=== PATIENT | female | born 1990 | race Asian ===

== ENCOUNTER 2020-06-17 15:43 | Emergency (ER) | payer OTHER, SELFPAY ==
[2020-06-17 15:45] VITALS: BP 152/67; PULSE 114; RESP 15; TEMP 36.3; O2SAT 100; BMI 27.4
--- NOTE | 2020-06-17 15:55 | DI.US.S_ITS ---
PROCEDURE: US OB LIMITED INDICATIONS: 13 weeks ,bleeding and crampng OUTSIDE/PRIOR DATING DATA: Last menstrual period (LMP): Unknown . LMP-based estimated date of delivery (SONAL): Unknown First dating scan (date and location): Unknown Estimated date of delivery (SONAL) from first dating scan: 12/28/2020 TECHNIQUE: Real-time scanning was performed of the fetus, with image documentation. COMPARISON: None. FINDINGS: Single live intrauterine is identified with heart rate of 170 beats per minute. The placenta is anterior. There is no gross previa or abruption identified. However, it is noted images are suboptimal and and felt to be suboptimally evaluated. It is noted that amniotic fluid is present. Measurements were not obtained. There is a heterogeneous focus of echogenicity within the lower uterine segment measuring approximately 6.1 x 6.3 x 5.4 cm. A 2nd focus is noted in the fundal region measuring approximately 5.9 x 6.0 x 6.6 cm. Adnexal structures are not identified. . IMPRESSION: 1. Suboptimal evaluation as described below. Recommend correlation of beta hCG levels and interval ultrasound follow-up in 1-2 days for further evaluation if symptoms persist. 2. Focus of heterogeneous echogenicity within the lower uterine segment. While this could represent a fibroid, it is felt to be poorly characterized. Etiology such as clot cannot be excluded. 3. Heterogeneous echogenicity within the fundus appearing more suggestive of fibroid. 4. No gross placental abnormality. However, it is poorly visualized. Dictated by: Belkis Lentz M.D. on 06/17/2020 at 16:47 Approved by: Belkis Lentz M.D. on 06/17/2020 at 16:56
--- NOTE | 2020-06-17 17:48 | PC.NURSE ---
Per Dr. Young, will await blood draw until she has seen results from Ultrasound.
--- NOTE | 2020-06-17 17:50 | ED.PREGNANCY ---
HPI - General Chief complaint: Vaginal Bleeding Stated complaint: 13 weeks - bleeding Time Seen by Provider: 06/17/20 16:04 Source: patient Mode of arrival: Ambulatory Limitations: no limitations History of Present Illness HPI Narrative: 29-year-old at 13 weeks gestational age, B-positive blood type presents with red vaginal bleeding. They are up visiting from [place] have been doing some driving as well as gentle strolling today. She notes that she had some abdominal pelvic cramping consistent with prior menstrual cramps last night, enough that she was having difficulty sleeping. By 4:00 a.m. this afternoon she noticed red blood enough that it coded the lining of her underwear has not continued since then. She does continue to have a cramping. She notes that she has to known fibroids in her uterus and has always had severe menstrual cramps with prior menses. She has a scheduled follow-up appointment with her OB provider tomorrow already. With the bright red bleeding noticed today they stopped by the emergency room for guidance and reassurance Patient : Yes Related Data Allergies Allergy/AdvReac Type Severity Reaction Status Date / Time No Known Drug Allergies Allergy Verified 06/17/20 15:52 Review of Systems Review of Systems Narrative: Minor amount of constipation with slight increased in abdominal gas Pertinent positive and negative findings as per HPI Remainder of review of systems is otherwise unremarkable for Constitutional: Fevers, chills, weakness ENT: No sore throat, neck pain, ear pain CV: Chest pain, palpitations, dyspnea on exertion Respiratory: Cough, wheeze, dyspnea GI: Nausea, vomiting, : Dysuria, hematuria, flank pain PMFSH - Past Medical History Surgical history: Reports no surgical history CODING ASSISTANT history: Reports Uterine Fibroids Patient : Yes Exam Narrative Exam Narrative: General: Alert appropriate in no acute distress Respiratory: Able to speak in full sentences, no obvious respiratory distress Skin: No obvious rashes, warm and dry Abdomen: Nontender, no palpable contractions, Neurologic: Grossly intact no obvious asymmetries or abnormalities Psych: appropriate insight and affect, cooperative External genitalia: Minor amount of brown discharge from the vagina Initial Vital Signs Initial Vital Signs: Vital Signs Temperature 97.3 F L 06/17/20 15:45 Pulse Rate 114 H 06/17/20 15:45 Respiratory Rate 15 06/17/20 15:45 Blood Pressure 152/67 H 06/17/20 15:45 Pulse Oximetry 100 06/17/20 15:45 Course Orders Ordered: ED Orders 06/17/20 15:55 US OB limited Stat ABO RH Type Stat Complete Blood Count AUTO DIFF Stat Comprehensive Metabolic Panel Stat HCG Quantitative /Beta subunit Stat Discontinued Medications Acetaminophen (Acetaminophen 325 Mg Tablet) 975 mg PO NOW ONE Stop: 06/17/20 18:30 Vital Signs Vital signs: Vital Signs - 8 hr 06/17/20 15:45 Temperature 97.3 F L Pulse Rate 114 H Respiratory Rate 15 Blood Pressure 152/67 H Pulse Oximetry 100 MDM - OB/Uterine Contractions Medical Records Attestation: I reviewed the patient's medical records. Lab Data Attestation: I reviewed the patient's lab results. Labs: Urine Dip Bedside Urine Glucose Negative Bedside Urine Bilirubin - Negative Bedside Urine Ketone - Negative Urine Specific [place] 1.010 Bedside Urine Occult Blood +++ Bedside Urine pH 6.0 Bedside Urine Protein - Negative Bedside Urine Urobilinogen - Negative Bedside Urine Nitrite - Negative Bedside Urine Leukocytes - Negative Esterase Imaging Data US ob: Radiologist's Impression: FINDINGS: Single live intrauterine is identified with heart rate of 170 beats per minute. The placenta is anterior. There is no gross previa or abruption identified. However, it is noted images are suboptimal and and felt to be suboptimally evaluated. It is noted that amniotic fluid is present. Measurements were not obtained. There is a heterogeneous focus of echogenicity within the lower uterine segment measuring approximately 6.1 x 6.3 x 5.4 cm. A 2nd focus is noted in the fundal region measuring approximately 5.9 x 6.0 x 6.6 cm. Adnexal structures are not identified. . IMPRESSION: 1. Suboptimal evaluation as described below. Recommend correlation of beta hCG levels and interval ultrasound follow-up in 1-2 days for further evaluation if symptoms persist. 2. Focus of heterogeneous echogenicity within the lower uterine segment. While this could represent a fibroid, it is felt to be poorly characterized. Etiology such as clot cannot be excluded. 3. Heterogeneous echogenicity within the fundus appearing more suggestive of fibroid. 4. No gross placental abnormality. However, it is poorly visualized. Dictated by: Belkis Lentz M.D. on 06/17/2020 at 16:47 MDM Narrative Medical decision making narrative: 29-year-old with 2 known uterine fibroids 1 at the fundus and 1 near the lower uterine segment. Minor amount of vaginal bleeding today with some cramping that is consistent with her usual menstrual cramping. She is B-positive so RhoGAM is not required. Bleeding has stopped at this point. She has a routine follow-up scheduled for tomorrow with her OBGYN. She is given a copy of the OB ultrasound done in the emergency department today. Advised her that Tylenol was safe and acceptable help with the cramping that she is currently having. At this point she is safe for home discharge Discharge Plan Departure Patient Disposition: Home Clinical Impression: Threatened Instructions: DI for Vaginal Bleeding During Activity Restrictions/Additional Instructions: Thank you for coming in today Your baby is alive and well with a heartbeat at 147 You do have the 2 fibroids in your uterus as you are aware. I suspect that part of the bleeding that your having is some bleeding just under the placenta related to the lower fibroid. I have given you a copy of the ultrasound report that was done in the emergency room, please share this with your OB doctor at your appointment tomorrow For the cramping, it is safe to use Tylenol. I would recommend decrease activity and pelvic rest (nothing in your vagina and no orgasms) If you have a change to the type of pain that you are experiencing or a dramatic amount of bright red bleeding it would be very appropriate to return to the closest emergency department I hope the rest of this goes well for you.
--- NOTE | 2020-06-17 18:32 | PC.NURSE ---
NO labs or IV needed at this time. Patient to be DC'd.
[2020-06-17] MEDS: ACETAMINOPHEN 325 MG TABLET 975 MG PO (18:43)
[2020-06-17 18:44] VITALS: BP 128/79; PULSE 87; RESP 17; O2SAT 99
== END 2020-06-17 18:45 | disposition home or self-care (01) ==
PROVIDERS: Emergency Provider Emergency Medicine
DX: O20.0 Threatened abortion (principal); Z3A.13 13 weeks gestation of pregnancy
CPT/HCPCS: 76815; 81003; 99283